=== PATIENT | male | born 1970 | race African-American/Black ===

== ENCOUNTER 2016-09-18 12:22 | Emergency (ER) | payer OTHER ==
[~2016-09-18] VITALS: Ht 167.6 cm; Wt 90.9 kg
[2016-09-18] MEDS ORDERED: IBUPROFEN 800 MG TABLET PO ONE (14:30)
[2016-09-18 15:40] VITALS: BP 139/81
== END 2016-09-18 16:21 | disposition home or self-care (01) ==
LOC: EMS 12:24
DX: L02.01 Cutaneous abscess of face (principal)
CPT/HCPCS: 99283

== ENCOUNTER 2016-09-21 11:44 | Emergency (ER) | payer OTHER ==
[~2016-09-21] VITALS: Ht 167.6 cm; Wt 79.5 kg
[2016-09-21] MEDS ORDERED: SMZ TMP PO (11:51)
[2016-09-21] MEDS ORDERED: CEPH500 PO (11:51)
[2016-09-21] MEDS ORDERED: IBUP-2070 PO (11:51)
[2016-09-21] MEDS ORDERED: SULF1TAB42 PO (14:50)
[2016-09-21] MEDS ORDERED: CEFTAROLINE 600 MG/D5W 250 ML IV ONE (15:00)
[2016-09-21] MEDS ORDERED: HYDROCODONE/ACETAMINOPHEN 5-325 MG TABLET PO ONE (16:30)
[2016-09-21 17:25] VITALS: BP 169/111
[2016-09-21] MEDS ORDERED: CloNIDine HCL 0.2 MG TABLET PO ONE (17:30)
== END 2016-09-21 17:45 | disposition home or self-care (01) ==
LOC: EMS 11:46
DX: L02.01 Cutaneous abscess of face (principal); L08.9 Local infection of the skin and subcutaneous tissue, unspecified; L03.211 Cellulitis of face; I10 Essential (primary) hypertension; F17.210 Nicotine dependence, cigarettes, uncomplicated
CPT/HCPCS: 96365; 99284; J0712

== ENCOUNTER 2016-10-10 10:57 | Emergency (ER) | payer OTHER ==
[~2016-10-10] VITALS: Ht 167.6 cm; Wt 122.5 kg
[~2016-10-10 10:57] MED LIST: CEPH500 PO; IBUP-2070 PO; SULF1TAB42 PO
[2016-10-10] MEDS ORDERED: QUET150T PO (11:06)
[2016-10-10] MEDS ORDERED: IBUPROFEN 800 MG TABLET PO ONE (12:45)
[2016-10-10 13:00] VITALS: BP 132/75
== END 2016-10-10 13:23 | disposition home or self-care (01) ==
LOC: EMS 11:05
DX: L02.01 Cutaneous abscess of face (principal); F17.210 Nicotine dependence, cigarettes, uncomplicated
CPT/HCPCS: 99283

== ENCOUNTER 2019-07-03 08:57 | Emergency (ER) | payer MEDICARE, OTHER ==
[~2019-07-03] VITALS: Ht 167.6 cm; Wt 125.0 kg
[2019-07-03] MEDS ORDERED: IBUPROFEN 400 MG TABLET PO ONE (09:30)
[2019-07-03 11:30] VITALS: BP 119/80
== END 2019-07-03 12:04 | disposition home or self-care (01) ==
LOC: EMS 08:59
DX: M79.672 Pain in left foot (principal); G47.00 Insomnia, unspecified; F17.210 Nicotine dependence, cigarettes, uncomplicated

== ENCOUNTER 2022-09-19 13:04 | Emergency (ER) | payer MEDICARE, OTHER ==
[~2022-09-19] VITALS: Ht 175.3 cm; Wt 118.2 kg
[2022-09-19 13:27] VITALS: BP 159/104
[2022-09-19 15:30] LABS: BASOPHILS % (AUTO) 1.2 % (0.0-2.0); HEMATOCRIT 47.6 % (41-53); HEMOGLOBIN 15.6 g/dL (13.5-17.5); LYMPHOCYTES # (AUTO) 2.6 K/uL (1.0-4.8); LYMPHOCYTES % (AUTO) 28.2 % (22.0-44.0); MEAN CORPUSCULAR HEMOGLOBIN 29.2 pg (26.0-34.0); MEAN CORPUSCULAR HGB CONC 32.9 G/dL (31.0-37.0); MEAN CORPUSCULAR VOLUME 89 fL (80-100); MONOCYTES # (AUTO) 0.7 K/uL (0.1-1.0); MONOCYTES % (AUTO) 7.5 % (2.0-9.0); NEUTROPHILS # (AUTO) 5.5 K/uL (1.8-7.7); NEUTROPHILS % (AUTO) 60.1 % (40.0-70.0); PLATELET COUNT (AUTO) 353 K/uL (150-450); RED BLOOD CELL COUNT(AUTO) 5.36 MIL/uL (4.50-5.90); RED CELL DISTRIBUTION WIDTH 14.3 % (11.5-14.5)
[2022-09-19] MEDS ORDERED: ACETAMINOPHEN/CODEINE 300-30 MG TABLET PO ONE (15:30)
[2022-09-19] MEDS ORDERED: COLCHICINE 0.6 MG TABLET PO ONE (15:30)
[2022-09-19] MEDS ORDERED: IBUPROFEN 600 MG TABLET PO ONE (15:30)
[2022-09-19 15:47] LABS: ANION GAP 9 mmol/L (8-16); CALCIUM, TOTAL 9.5 mg/dL (8.8-10.5); CARBON DIOXIDE 27 mmol/L (22-29); CHLORIDE 103 mmol/L (98-107); CREATININE 1.17 mg/dL (0.60-1.30); GLOMERULAR FILTR. RATE CALC > 60 mL/min (>60); GLUCOSE,RANDOM 101 mg/dL (70-110); POTASSIUM 3.9 mmol/L (3.5-5.1); SODIUM SERUM 139 mmol/L (136-145); UREA NITROGEN, BLOOD 14 mg/dL (7-18)
[2022-09-19] MEDS ORDERED: COLC0.6T73 PO (16:20)
[2022-09-19] MEDS ORDERED: ACET-2080 PO (16:20)
[2022-09-19] MEDS ORDERED: IBUP-1554 PO (16:20)
[2022-09-19] MEDS ORDERED: CEPH-558 PO (16:20)
== END 2022-09-19 17:14 | disposition home or self-care (01) ==
LOC: EMS 13:15
DX: S93.522A Sprain of metatarsophalangeal joint of left great toe, initial encounter (principal); M79.89 Other specified soft tissue disorders; F17.210 Nicotine dependence, cigarettes, uncomplicated; X58.XXXA Exposure to other specified factors, initial encounter; Y93.89 Activity, other specified; Y92.69 Other specified industrial and construction area as the place of occurrence of the external cause; Y99.0 Civilian activity done for income or pay
CPT/HCPCS: 80048; 84550; 85025; 99284

== ENCOUNTER 2024-02-22 06:35 | Emergency (ER) | payer MEDICARE, OTHER ==
[~2024-02-22] VITALS: Ht 167.6 cm; Wt 116.8 kg
[~2024-02-22 06:35] MED LIST changes: +ACET-2080 PO; +CEPH-558 PO; -CEPH500 PO; +COLC-3 PO; +IBUP-1554 PO; -IBUP-2070 PO; -SULF1TAB42 PO
[2024-02-22 06:45] VITALS: TEMP 97.6
[2024-02-22 07:59] LABS: APPEARANCE,URINE CLEAR (CLEAR); BILIRUBIN,URINE NEGATIVE (NEGATIVE); COLOR,URINE YELLOW (YELLOW); GLUCOSE, URINE (UA) NEGATIVE (NEGATIVE); KETONES,URINE NEGATIVE (NEGATIVE); LEUKOCYTE ESTERASE ,URINE NEGATIVE (NEGATIVE); NITRATE,URINE NEGATIVE (NEGATIVE); OCCULT BLOOD,URINE NEGATIVE (NEGATIVE); PROTEIN,URINE 100-200,SEE CONFIRM mg/dL (NEGATIVE); SPECIFIC GRAVITIY, URINE 1.025 (1.003-1.030); UROBILINOGEN,URINE <=1.0 mg/dL (<=1.0)
[2024-02-22 08:48] LABS: SULFOSALICYLIC ACID,URINE 1+ (Negative)
[2024-02-22 08:49] LABS: BACTERIA,URINE None Seen /HPF (None Seen); RBC,URINE None Seen /HPF (0-2); SQUAMOUS EPITHELIAL CELL,UR Few /LPF (None Seen); WBC,URINE 0-2 /HPF (0-5)
[2024-02-22] MEDS ORDERED: POLY119P3 PO (09:23)
[2024-02-22] MEDS ORDERED: CYCL-448 PO (09:24)
[2024-02-22 09:35] VITALS: BP 144/89; PULSE 82; RESP 16; O2SAT 99
== END 2024-02-22 09:35 | disposition home or self-care (01) ==
LOC: EMS 06:36
DX: S39.011A Strain of muscle, fascia and tendon of abdomen, initial encounter (principal); F17.210 Nicotine dependence, cigarettes, uncomplicated; F12.90 Cannabis use, unspecified, uncomplicated; X58.XXXA Exposure to other specified factors, initial encounter; Y93.89 Activity, other specified; Y92.89 Other specified places as the place of occurrence of the external cause; Y99.8 Other external cause status
CPT/HCPCS: 74022; 76870; 81001; 81002; 93005; 99285; Z7502